=== PATIENT | female | born 1990 | race African-American/Black ===

== ENCOUNTER 2018-02-22 11:35 | Emergency (ER) | payer SELFPAY, OTHER ==
[2018-02-22 12:33] LABS: URINE HCG POC HCG NEGATIVE (Negative)
== END 2018-02-22 14:11 | disposition home or self-care (01) ==
LOC: ER 11:35
DX: S16.1XXA Strain of muscle, fascia and tendon at neck level, initial encounter (principal); S09.90XA Unspecified injury of head, initial encounter; W22.8XXA Striking against or struck by other objects, initial encounter; Y93.89 Activity, other specified; Y92.89 Other specified places as the place of occurrence of the external cause; Y99.8 Other external cause status
CPT/HCPCS: 70450; 70486; 72125; 81025; 99284-25

== ENCOUNTER 2018-10-19 14:20 | Emergency (ER) | payer SELFPAY ==
[~2018-10-19] VITALS: Ht 160 cm; Wt 62.6 kg
[~2018-10-19 14:20] MED LIST: ACET-704 PO; CYCL5TAB PO; IBUP-1060 PO; PREN1TAB58 PO
[2018-10-19 14:32] VITALS: BP 136/69
[2018-10-19] MEDS ORDERED: IBUP-1007 PO (14:35)
[2018-10-19] MEDS ORDERED: HYDR-3164 PO (14:35)
--- NOTE | 2018-10-19 14:36 | PHYS DOC ---
Past Medical History Past Medical History: No Pertinent History Past Surgical History: No Surgical History Alcohol Use: None Drug Use: None Adult General Chief Complaint Chief Complaint: DENTAL PROBLEM [facility] Patient is a 27 year old female who presents with dental pain that started this morning on the left lower side and states it hurts all along the gumline. Review of Systems Review of Systems Constitutional: Denies fever or chills [] Eyes: Denies change in visual acuity, redness, or eye pain [] HENT: Left lower dental pain and gum line pain. Denies nasal congestion or sore throat [] Respiratory: Denies cough or shortness of breath [] Cardiovascular: No additional information not addressed in HPI [] GI: Denies abdominal pain, nausea, vomiting, bloody stools or diarrhea [] : Denies dysuria or hematuria [] Musculoskeletal: Denies back pain or joint pain [] Integument: Denies rash or skin lesions [] Neurologic: Denies headache, focal weakness or sensory changes [] Endocrine: Denies polyuria or polydipsia [] All other systems were reviewed and found to be within normal limits, except as documented in this note. Allergies Allergies Allergies Coded Allergies Type Severity Reaction Last Updated Verified No Known Drug Allergies 12/26/13 No Physical Exam Physical Exam Constitutional: Well developed, well nourished, no acute distress, non-toxic appearance. [] HENT: Normocephalic, atraumatic, bilateral external ears normal, oropharynx moist, no oral exudates, nose normal. Left lower gum line and dental pain. No dental cavities seen, gum line redness, swelling, or facial swelling. [] Eyes: PERRLA, EOMI, conjunctiva normal, no discharge. [] Neck: Normal range of motion, no tenderness, supple, no stridor. [] Cardiovascular:Heart rate regular rhythm, no murmur [] Lungs & Thorax: Bilateral breath sounds clear to auscultation [] Abdomen: Bowel sounds normal, soft, no tenderness, no masses, no pulsatile masses. [] Skin: Warm, dry, no erythema, no rash. [] Back: No tenderness, no CVA tenderness. [] Extremities: No tenderness, no cyanosis, no clubbing, ROM intact, no edema. [] Neurologic: Alert and oriented X 3, normal motor function, normal sensory function, no focal deficits noted. [] Psychologic: Affect normal, judgement normal, mood normal. [] EKG EKG [] Radiology/Procedures Radiology/Procedures [] Course & Med Decision Making Course & Med Decision Making Patient is a 27 year old female who presents with dental pain that started this morning on the left lower side and states it hurts all along the gumline. Rates her pain a 9/10. There is no redness to the gumline, bleeding, no cavities to her teeth. Her face is not swollen. However she complains of the wisdom tooth area of pain. Denies fevers that she is afebrile. Alert and oriented. Skin pink warm and dry. Denies any fevers, nausea, vomiting. Patient states this is morning. States she took Tylenol about 9:00 this morning. She will be given [facility] [place] and dental service resources. Patient is to also take ibuprofen with [place] and to follow up with a dentist as soon as possible. [] Dragon Disclaimer Dragon Disclaimer This electronic medical record was generated, in whole or in part, using a voice recognition dictation system. Departure Departure Impression: Primary Impression: Pain, dental Disposition: 01 HOME, SELF-CARE Condition: STABLE Referrals: NO PCP (PCP) Patient Instructions: Dental Pain Additional Instructions: Follow-up with her dentist as soon as possible. Take medications as prescribed and use ibuprofen. Scripts Ibuprofen (IBUPROFEN) 600 Mg Tablet 600 MG PO PRN Q6HRS PRN for INFLAMMATION, #20 TAB Prov: MARLEN MAXWELL [employer]CH[employer]IC 10/19/18 Hydrocodone/Apap 5-325 (NORCO 5-325 TABLET) 1 Each Tablet 1 TAB PO PRN Q6HRS PRN for PAIN, #10 TAB 0 Refills Prov: MARLEN MAXWELL [employer] MECH[employer]IC 10/19/18 MARLEN MAXWELL [employer] MECH[employer]IC Oct 19, 2018 14:36
[2018-10-19] MEDS ORDERED: IBUPROFEN 600 MG TABLET. PO ONE (14:45)
[2018-10-19] MEDS ORDERED: HYDROcodone/APAP 5/325MG 1 TAB TABLET PO ONE (14:45)
== END 2018-10-19 14:58 | disposition home or self-care (01) ==
LOC: ER 14:20
DX: K08.89 Other specified disorders of teeth and supporting structures (principal)
CPT/HCPCS: 99283

== ENCOUNTER 2019-01-15 10:52 | Emergency (ER) | payer SELFPAY ==
[~2019-01-15] VITALS: Ht 160 cm; Wt 59.9 kg
[~2019-01-15 10:52] MED LIST changes: +HYDR-3164 PO; +IBUP-1007 PO
[2019-01-15 11:01] VITALS: BP 116/69
--- NOTE | 2019-01-15 11:05 | PHYS DOC ---
Past Medical History Past Medical History: No Pertinent History Past Surgical History: No Surgical History Alcohol Use: None Drug Use: None Adult General HPI HPI Patient is a otherwise healthy 28 year old female who presents with nausea and vomiting that started last night after she took a prescribed hydrocodone. She is currently taking antibiotics and was prescribed the narcotic for dental infection. She has follow up appointment later this week for extraction of the tooth. She denies abdominal pain, diarrhea, headache, chest pain, shortness of breath. Review of Systems Review of Systems Constitutional: Denies fever or chills Eyes: Denies change in visual acuity, redness, or eye pain HENT: Denies nasal congestion or sore throat, Reports tooth pain Respiratory: Denies cough or shortness of breath GI: Denies abdominal pain, Reports nausea and vomiting : Denies dysuria or hematuria Integument: Denies rash or skin lesions Neurologic: Denies headache, focal weakness or sensory changes Complete systems were reviewed and found to be within normal limits, except as documented in this note. Current Medications Current Medications Current Medications Medications (Trade) Dose Ordered Sig/Doc Start Time Stop Time Status Last Admin Dose Admin Bupivacaine HCl/ Epinephrine Bitart (Sensorcain-Mpf Epi 0.5%-1:[id number]) 30 ml 1X ONCE 01/15/19 11:15 01/15/19 11:16 DC 01/15/19 11:20 30 ML Dexamethasone (Decadron) 10 mg 1X ONCE 01/15/19 11:15 01/15/19 11:16 DC 01/15/19 11:20 10 MG Ondansetron HCl (Zofran Odt) 4 mg 1X ONCE 01/15/19 11:15 01/15/19 11:16 DC 01/15/19 11:20 4 MG Allergies Allergies Allergies Coded Allergies Type Severity Reaction Last Updated Verified No Known Drug Allergies 12/26/13 No Physical Exam Physical Exam Constitutional: Well developed, well nourished, appears uncomfortable HENT: Normocephalic, atraumatic, left lower third molar with dental amparo Neck: Normal range of motion, no tenderness, supple, no LAD Cardiovascular:Heart rate regular rhythm, no murmur Lungs & Thorax: Bilateral breath sounds clear to auscultation Skin: Warm, dry, no erythema, no rash. Extremities: No tenderness, moves all, no edema Neurologic: Alert and oriented X 3, normal motor function, normal sensory function, no focal deficits noted. Current Patient Data Vital Signs Vital Signs Date Time Temp Pulse Resp B/P (MAP) Pulse Ox O2 Delivery O2 Flow Rate FiO2 01/15/19 11:01 99.1 105 16 116/69 (85) 100 Room Air 99.1 EKG EKG [] Radiology/Procedures Radiology/Procedures [] Course & Med Decision Making Course & Med Decision Making Pertinent Labs and Imaging studies reviewed. (See chart for details) Patient is a 28 year old AA female who presented with nausea and vomiting since yesterday evening after taking a prescribed hydrocodone. She is currently on antibiotics for a scheduled tooth extraction later this week. On exam there is a dental amparo of the left lower third molar. Symptomatic treatment provided including dental block. She was instructed to continue antibiotic as written. She can take ibuprofen as needed for pain control. Dragon Disclaimer Dragon Disclaimer This electronic medical record was generated, in whole or in part, using a voice recognition dictation system. Additional Procedures Progress Dental Block Verbal consent obtained from patient. Time out performed. Left inferior alveolar block performed with infiltration of 0.5% Bupivacaine with Epinephrine x 3ml via 25 gauge hypodermic needle. Successful anesthesia obtained. Patient tolerated procedure well and without difficulty. Departure Departure Impression: Primary Impression: Dentalgia Additional Impressions: Dental caries Nausea & vomiting Disposition: 01 HOME, SELF-CARE Condition: STABLE Referrals: NO PCP (PCP) Patient Instructions: Dental Caries-Brief, Nausea, Adult, [id number], Toothache-Brief Scripts Chlorhexidine Gluconate (PERIDEX) 15 Ml Mouthwash 15 ML PO BID for 7 Days, #946 ML Prov: MARYBEL PEPPER DO 01/15/19 Ondansetron (ONDANSETRON ODT) 4 Mg Tab.rapdis 1 TAB PO PRN Q6-8HRS for VOMITING, #16 TAB Prov: MARYBEL PEPPER DO 01/15/19 Problem Qualifiers Additional Impressions: Nausea & vomiting Vomiting type: unspecified Vomiting Intractability: non-intractable Qualified Codes: R11.2 - Nausea with vomiting, unspecified MARYBEL PEPPRE DO Jan 15, 2019 11:05
[2019-01-15] MEDS ORDERED: ONDANSETRON ODT 4 MG TAB.RAPDIS. PO ONE (11:15)
[2019-01-15] MEDS ORDERED: BUPIVAC MPF-EPI 0.5%-1:200000 30 ML VIAL. INJ ONE (11:15)
[2019-01-15] MEDS ORDERED: DEXAMETHASONE 4 MG TABLET PO ONE (11:15)
[2019-01-15] MEDS ORDERED: ONDA4TAB12 PO (12:07)
[2019-01-15] MEDS ORDERED: CHLO15MO2 PO (12:07)
== END 2019-01-15 12:34 | disposition home or self-care (01) ==
LOC: ER 10:52
DX: K02.9 Dental caries, unspecified (principal); R11.2 Nausea with vomiting, unspecified
CPT/HCPCS: 64400; 99284; J3490; J8540; Q0162; 99283

== ENCOUNTER 2019-02-10 13:31 | Emergency (ER) | payer SELFPAY ==
[~2019-02-10] VITALS: Ht 160 cm; Wt 51.7 kg
[~2019-02-10 13:31] MED LIST changes: +CHLO15MO2 PO; +ONDA4TAB12 PO
[2019-02-10 13:45] VITALS: BP 118/56
[2019-02-10 13:59] LABS: BILIRUBIN,URINE NEGATIVE (NEG); CLARITY,URINE CLEAR; COLOR,URINE YELLOW; NITRITE,URINE NEGATIVE (NEG); PROTEIN,URINE 30 mg/dL (NEG-TRACE); UROBILINOGEN,URINE 0.2 mg/dL (0.2 mg/dL)
--- NOTE | 2019-02-10 14:08 | PHYS DOC ---
Past Medical History Past Medical History: No Pertinent History (MARLEN MAXWELL APRN) Past Surgical History: No Surgical History (MARLEN MAXWELL APRN) Alcohol Use: None Drug Use: None (MARLEN MAXWELL APRN) Adult General Chief Complaint Chief Complaint: ABDOMINAL PAIN HPI HPI Patient is a 28 year old female who presents with white and brown colored vaginal discharge for 2 days with lower abdominal cramping that is used with a heating pad. Patient states last night in the shower she also found a rash-type area outside of her vagina that is nonpainful, nondraining or itchy. (MARLEN MAXWELL APRN) Review of Systems Review of Systems Constitutional: Denies fever or chills [] Eyes: Denies change in visual acuity, redness, or eye pain [] HENT: Denies nasal congestion or sore throat [] Respiratory: Denies cough or shortness of breath [] Cardiovascular: No additional information not addressed in HPI [] GI: Denies abdominal pain, nausea, vomiting, bloody stools or diarrhea [] : vaginal discharge, vaginal rash. Denies dysuria or hematuria [] Musculoskeletal: Denies back pain or joint pain [] Integument: Denies rash or skin lesions [] Neurologic: Denies headache, focal weakness or sensory changes [] All other systems were reviewed and found to be within normal limits, except as documented in this note. (MARLEN MAXWELL APRN) Current Medications Current Medications Current Medications Medications (Trade) Dose Ordered Sig/Doc Start Time Stop Time Status Last Admin Dose Admin Azithromycin (Zithromax) 1,000 mg 1X ONCE 02/10/19 14:15 02/10/19 14:16 DC 02/10/19 14:23 1,000 MG Ceftriaxone Sodium (Rocephin Im) 250 mg 1X ONCE 02/10/19 14:15 02/10/19 14:16 DC 02/10/19 14:23 250 MG Ondansetron HCl (Zofran Odt) 4 mg 1X ONCE 02/10/19 14:15 02/10/19 14:16 DC 02/10/19 14:23 4 MG (NOÉ MOORE MD) Allergies Allergies Allergies Coded Allergies Type Severity Reaction Last Updated Verified No Known Drug Allergies 12/26/13 No (NOÉ MOORE MD) Physical Exam Physical Exam Constitutional: Well developed, well nourished, no acute distress, non-toxic appearance. [] HENT: Normocephalic, atraumatic, bilateral external ears normal, oropharynx moist, no oral exudates, nose normal. [] Eyes: PERRLA, EOMI, conjunctiva normal, no discharge. [] Neck: Normal range of motion, no tenderness, supple, no stridor. [] Cardiovascular:Heart rate regular rhythm, no murmur [] Lungs & Thorax: Bilateral breath sounds clear to auscultation [] Abdomen: Bowel sounds normal, soft, no tenderness, no masses, no pulsatile masses. [] Skin: Vaginal lesions. Warm, dry, no erythema, no rash. [] Back: No tenderness, no CVA tenderness. [] Extremities: No tenderness, no cyanosis, no clubbing, ROM intact, no edema. [] Neurologic: Alert and oriented X 3, normal motor function, normal sensory function, no focal deficits noted. [] Psychologic: Affect normal, judgement normal, mood normal. [] (MARLEN MAXWELL APRN) Current Patient Data Vital Signs Vital Signs Date Time Temp Pulse Resp B/P (MAP) Pulse Ox O2 Delivery O2 Flow Rate FiO2 02/10/19 13:45 98.0 96 16 118/56 (76) 100 Room Air 98.0 (NOÉ MOORE MD) Lab Values Laboratory Tests Test 02/10/19 13:45 02/10/19 13:50 Urine Color Yellow Urine Clarity Clear Urine pH 6.0 Urine Specific [place] 1.010 Urine Protein 30 mg/dL (NEG-TRACE) Urine Glucose (UA) Negative mg/dL (NEG) Urine Ketones (Stick) Trace mg/dL (NEG) Urine Blood Small (NEG) Urine Nitrite Negative (NEG) Urine Bilirubin Negative (NEG) Urine Urobilinogen Dipstick 0.2 mg/dL (0.2 mg/dL) Urine Leukocyte Esterase Small (NEG) Urine RBC Occ /HPF (0-2) Urine WBC 5-10 /HPF (0-4) Urine Squamous Epithelial Cells Occ /LPF Urine Bacteria 0 /HPF (0-FEW) Urine Mucus Slight /LPF POC Urine HCG, Qualitative Hcg negative (Negative) Microbiology 02/10/19 Wet Prep - Final, Complete (NOÉ MOORE MD) EKG EKG [] (MARLEN MAXWELL APRN) Radiology/Procedures Radiology/Procedures [] (MARLEN MAXWELL APRN) Course & Med Decision Making Course & Med Decision Making Patient is a 28 year old female who presents with white and brown colored vaginal discharge for 2 days with lower abdominal cramping that is used with a heating pad. Patient states last night in the shower she also found a rash-type area outside of her vagina that is nonpainful, nondraining or itchy. Patient denies dysuria, fevers, nausea or vomiting or diarrhea. See vaginal exam below. Abdomen soft and nontender. Lungs are clear to auscultation all lobes. Heart rate regular without murmur. Vital signs within normal limits. Afebrile. Alert and oriented. Skin pink warm and dry. Mucous membranes moist. Patient states she does have STD concerns. Patient is treated for Chlamydia and gonorrhea in the ED today. Patient will be given resources for a transportation lead for follow-up of the vaginal lesions. Negative wet prep. Urine shows no infection. Pelvic Exam: Cytology Teacher present Abdomen: Nontender External Genitalia: External vaginal circular and slightly raised lesions that are nondraining, non bleeding, non painful. Normal Skin Speculum: Normal vaginal mucosa, White/brown cervical discharge, cervical os reddened Bimanual: No adnexal masses or tenderness, No CMT (MARLEN MAXWELL APRN) Course & Med Decision Making Staff Physician Addendum: I was working in the ER during the course of this patient's visit. I was available for consultation as needed, but I was not directly involved in the care of this patient. (NOÉ MOORE MD) Dragon Disclaimer Dragon Disclaimer This electronic medical record was generated, in whole or in part, using a voice recognition dictation system. (MARLEN MAXWELL APRN) Departure Departure Impression: Primary Impression: Concern about sexually transmitted disease in female without diagnosis Disposition: 01 HOME, SELF-CARE Condition: STABLE Referrals: NO PCP (PCP) LAURA WALLACE Jr, MD Patient Instructions: Sexually Transmitted Disease Additional Instructions: Follow-up with transportation lead for vaginal lesions. MARLEN MAXWELL APRN Feb 10, 2019 14:08 NOÉ MOORE MD Feb 11, 2019 07:11
[2019-02-10 14:12] LABS: BACTERIA,URINE 0 /HPF (0-FEW); RBC,URINE OCC /HPF (0-2); SQUAMOUS EPITHELIAL CELL,UR OCC /LPF
[2019-02-10] MEDS: AZITHROMYCIN 250 MG TABLET. PO ONE (14:23)
[2019-02-10] MEDS: cefTRIAXone IM 250 MG VIAL IM ONE (14:23)
[2019-02-10] MEDS: ONDANSETRON ODT 4 MG TAB.RAPDIS. PO ONE (14:23)
[2019-02-13 14:18] LABS: GC PROBE Negative (Negative)
== END 2019-02-10 16:06 | disposition home or self-care (01) ==
LOC: ER 13:31
DX: N89.8 Other specified noninflammatory disorders of vagina (principal); R10.30 Lower abdominal pain, unspecified; Z20.2 Contact with and (suspected) exposure to infections with a predominantly sexual mode of transmission
CPT/HCPCS: 81001; 81025; 96372; 99283; J0696; Q0111; Q0144; Q0162; 87086; 87491; 87591

== ENCOUNTER 2019-09-05 11:23 | Emergency (ER) | payer SELFPAY ==
[~2019-09-05] VITALS: Ht 160 cm; Wt 59.1 kg
--- NOTE | 2019-09-05 11:56 | PHYS DOC ---
Past Medical History Past Medical History: No Pertinent History Past Surgical History: No Surgical History Alcohol Use: None Drug Use: None Adult General Chief Complaint Chief Complaint: VAGINAL BLEEDING HPI HPI Patient is a 28 year old female who presents with complaining of vaginal bleeding. Patient is with LMP of early June with complaining of constant vaginal bleeding for the last 3 weeks that gradually getting heavier. Patient denies passing tissue or blood clots and states her bleeding is more than her usual menstruation. Patient complaining of mild low back pain and rated his pain for without abdominal cramping, dizziness, chest pain, shortness of breath, fever and chills. Review of Systems Review of Systems Constitutional: Denies fever or chills [] Eyes: Denies change in visual acuity, redness, or eye pain [] HENT: Denies nasal congestion or sore throat [] Respiratory: Denies cough or shortness of breath [] Cardiovascular: No additional information not addressed in HPI [] GI: Denies abdominal pain, nausea, vomiting, bloody stools or diarrhea [] : Denies dysuria or hematuria, reports vaginal bleeding [] Musculoskeletal: Denies joint pain , reports back pain[] Integument: Denies rash or skin lesions [] Neurologic: Denies headache, focal weakness or sensory changes [] Endocrine: Denies polyuria or polydipsia [] All other systems were reviewed and found to be within normal limits, except as documented in this note. Current Medications Current Medications Current Medications Medications (Trade) Dose Ordered Sig/Doc Start Time Stop Time Status Last Admin Dose Admin Sodium Chloride 1,000 ml @ 1,000 mls/hr 1X ONCE 09/05/19 12:00 09/05/19 12:59 DC 09/05/19 12:09 1,000 MLS/HR Allergies Allergies Allergies Coded Allergies Type Severity Reaction Last Updated Verified No Known Drug Allergies 12/26/13 No Physical Exam Physical Exam Constitutional: Well developed, well nourished, no distress, non-toxic appearance. [] HENT: Normocephalic, atraumatic. Eyes: PERRLA, EOMI, conjunctiva normal, no discharge. [] Neck: Normal range of motion, no tenderness, supple, no stridor. [] Cardiovascular:Heart rate regular rhythm, no murmur [] Lungs & Thorax: Bilateral breath sounds clear to auscultation [] Abdomen: Bowel sounds normal, soft, no tenderness, no masses, no pulsatile masses. [] Skin: Warm, dry, no erythema, no rash. [] Back: No tenderness, no CVA tenderness. [] Extremities: No tenderness, no cyanosis, no clubbing, ROM intact, no edema. [] Neurologic: Alert and oriented X 3, no focal deficits noted. [] Psychologic: Affect normal, judgement normal, mood normal. [] Current Patient Data Vital Signs Vital Signs Date Time Temp Pulse Resp B/P (MAP) Pulse Ox O2 Delivery O2 Flow Rate FiO2 09/05/19 13:06 84 16 102/62 (75) 99 Room Air 09/05/19 11:37 98.8 98.8 Lab Values Laboratory Tests Test 09/05/19 11:49 09/05/19 12:05 POC Urine HCG, Qualitative Hcg negative (Negative) White Blood Count 3.9 x10^3/uL (4.0-11.0) L Red Blood Count 3.83 x10^6/uL (3.50-5.40) Hemoglobin 10.9 g/dL (12.0-15.5) L Hematocrit 33.0 % (36.0-47.0) L Mean Corpuscular Volume 86 fL (79-100) Mean Corpuscular Hemoglobin 29 pg (25-35) Mean Corpuscular Hemoglobin Concent 33 g/dL (31-37) Red Cell Distribution Width 14.2 % (11.5-14.5) Platelet Count 223 x10^3/uL (140-400) Neutrophils (%) (Auto) 41 % (31-73) Lymphocytes (%) (Auto) 50 % (24-48) H Monocytes (%) (Auto) 8 % (0-9) Eosinophils (%) (Auto) 1 % (0-3) Basophils (%) (Auto) 1 % (0-3) Neutrophils # (Auto) 1.6 x10^3/uL (1.8-7.7) L Lymphocytes # (Auto) 2.0 x10^3/uL (1.0-4.8) Monocytes # (Auto) 0.3 x10^3/uL (0.0-1.1) Eosinophils # (Auto) 0.0 x10^3/uL (0.0-0.7) Basophils # (Auto) 0.0 x10^3/uL (0.0-0.2) Sodium Level 142 mmol/L (136-145) Potassium Level 4.5 mmol/L (3.5-5.1) Chloride Level 107 mmol/L (98-107) Carbon Dioxide Level 27 mmol/L (21-32) Anion Gap 8 (6-14) Blood Urea Nitrogen 10 mg/dL (7-20) Creatinine 0.9 mg/dL (0.6-1.0) Estimated GFR (Cockcroft-Gault) 90.9 BUN/Creatinine Ratio 11 (6-20) Glucose Level 83 mg/dL (70-99) Calcium Level 9.1 mg/dL (8.5-10.1) Total Bilirubin 0.7 mg/dL (0.2-1.0) Aspartate Amino Transferase (AST) 15 U/L (15-37) Alanine Aminotransferase (ALT) 12 U/L (14-59) L Alkaline Phosphatase 54 U/L (46-116) Total Protein 7.5 g/dL (6.4-8.2) Albumin 3.5 g/dL (3.4-5.0) Albumin/Globulin Ratio 0.9 (1.0-1.7) L Laboratory Tests 09/05/19 12:05 Laboratory Tests 09/05/19 12:05 EKG EKG [] Radiology/Procedures Radiology/Procedures [] [address] [place] [address] IMAGING REPORT Signed PATIENT: FATOUMATA JAIMES ACCOUNT: [id number] : 1990 LOCATION: ER AGE: 28 SEX: F EXAM STATUS: REG ER ORD. PHYSICIAN: ESTEFANIA EUGENE MD REASON: abnormal vaginal bleeding PROCEDURE: PELVIS COMPLETE EXAM: Pelvic sonogram. HISTORY: Vaginal bleeding. TECHNIQUE: Transabdominal sonographic imaging of the pelvis was performed. COMPARISON: None. FINDINGS: The uterus measures 6.1 x 4.4 x 3.9 cm. The endometrial stripe measures 6 mm in thickness. The ovaries are normal in size and demonstrate normal blood flow. There are multiple ovarian follicles. There is a dominant right ovarian follicle/follicular cyst measuring 2.1 cm. There is no pelvic free fluid. IMPRESSION: 1. 2.1 cm dominant right ovarian follicle/follicular cyst. 2. Otherwise, unremarkable pelvic sonogram. Electronically signed by: Aline York MD (09/05/2019 12:38 PM) [facility] DICTATED and SIGNED BY: ALINE YORK MD DATE: 09/05/19 1238 Course & Med Decision Making Course & Med Decision Making Pertinent Labs and Imaging studies reviewed. (See chart for details) Evaluation of patient in ER showed 28-year-old female patient with complaining of vaginal bleeding for 3 weeks. Patient had unremarkable physical exam. Labs showed hemoglobin of 10.6 with history of chronic anemia. White count was 2.4 with history of leukopenia. Ultrasound of pelvic showed normal size of uterus with small ovarian cyst. Plan discharge patient home with diagnose of abnormal vaginal bleeding and instruction to follow up with her [employer]. I've spoken with the patient and/or caregivers. I've explained the patient's condition, diagnosis and treatment plan based on information available to me at this time. I've answered the patient's and/or caregivers questions and addressed any concerns. The patient and/or caregivers have a good understanding the patient's diagnosis, condition and treatment plan as can be expected at this point. Vital signs have been stabilized. The patient's condition is stable for discharge from the emergency department. The patient will pursue further outpatient evaluation with her primary care provider or other designated consulting physician as outlined in the discharge instructions. Patient and/or caregivers are agreeable to this plan of care and follow-up instructions have been explained in detail. The patient and/or caregivers have received these instructions in written format and expressed understanding of these discharge instructions. The patient and her caregivers are aware that if any significant change in condition or worsening of symptoms should prompt him to immediately return to this of the closest emergency department. If an emergent department is not readily available I would encourage him to call 911. Cordelia Disclaimer Cordelia Disclaimer This electronic medical record was generated, in whole or in part, using a voice recognition dictation system. Departure Departure Impression: Primary Impression: Abnormal vaginal bleeding Additional Impression: Chronic anemia Disposition: HOME, SELF-CARE (at 1254) Condition: IMPROVED Referrals: NO PCP (PCP) Patient Instructions: Abnormal Uterine Bleeding, Anemia, FAQs Additional Instructions: Drink plenty of liquids Follow-up with your [employer] [employer] physician in 2-3 days Return to ER if not getting better Take [id number] iron. Scripts Ibuprofen (IBUPROFEN) 600 Mg Tablet 600 MG PO PRN Q6HRS PRN for PAIN, #20 TAB take with food or milk Prov: ESTEFANIA EUGENE MD 09/05/19 Problem Qualifiers ESTEFANIA EUGENE MD Sep 05, 2019 11:56
[2019-09-05] MEDS ORDERED: IV NORMAL SALINE 1000ML BAG 1,000 ML IV ONE (12:00)
[2019-09-05 12:20] LABS: BASO % 1 % (0-3); EOS % 1 % (0-3); HEMOGLOBIN 10.9 g/dL (12.0-15.5); LYMPH % 50 % (24-48); MEAN CORPUSCULAR HEMOGLOBIN 29 pg (25-35); MEAN CORPUSCULAR HGB CONC 33 g/dL (31-37); MEAN CORPUSCULAR VOLUME 86 fL (79-100); MONO # 0.3 x10^3/uL (0.0-1.1); MONO % 8 % (0-9); NEUT # 1.6 x10^3/uL (1.8-7.7); NEUT % 41 % (31-73); PLATELET COUNT 223 x10^3/uL (140-400); RED BLOOD COUNT 3.83 x10^6/uL (3.50-5.40); RED CELL DISTRIBUTION WIDTH 14.2 % (11.5-14.5); WHITE BLOOD COUNT 3.9 x10^3/uL (4.0-11.0)
[2019-09-05 12:26] LABS: CALCIUM 9.1 mg/dL (8.5-10.1); CREATININE 0.9 mg/dL (0.6-1.0); GFR 90.9; POTASSIUM 4.5 mmol/L (3.5-5.1)
[2019-09-05 12:36] LABS: ALBUMIN 3.5 g/dL (3.4-5.0); ALBUMIN/GLOBULIN RATIO 0.9 (1.0-1.7); TOTAL BILIRUBIN 0.7 mg/dL (0.2-1.0); TOTAL PROTEIN 7.5 g/dL (6.4-8.2)
--- NOTE | 2019-09-05 12:41 | RAD ---
EXAM: Pelvic sonogram. HISTORY: Vaginal bleeding. TECHNIQUE: Transabdominal sonographic imaging of the pelvis was performed. COMPARISON: None. FINDINGS: The uterus measures 6.1 x 4.4 x 3.9 cm. The endometrial stripe measures 6 mm in thickness. The ovaries are normal in size and demonstrate normal blood flow. There are multiple ovarian follicles. There is a dominant right ovarian follicle/follicular cyst measuring 2.1 cm. There is no pelvic free fluid. IMPRESSION: 1. 2.1 cm dominant right ovarian follicle/follicular cyst. 2. Otherwise, unremarkable pelvic sonogram. Electronically signed by: Aline York MD (09/05/2019 12:38 PM) [place] [id number]
[2019-09-05] MEDS ORDERED: IBUP-1007 PO (12:56)
[2019-09-05 13:06] VITALS: BP 102/62
== END 2019-09-05 13:21 | disposition home or self-care (01) ==
LOC: ER 11:23
DX: N93.8 Other specified abnormal uterine and vaginal bleeding (principal); D64.9 Anemia, unspecified
CPT/HCPCS: 36415; 76856; 80053; 81025; 85025; 99285; J7030

== ENCOUNTER 2019-12-08 12:37 | Emergency (ER) | payer OTHER ==
[2019-12-08] MEDS ORDERED: IV NORMAL SALINE 1000ML BAG 1,000 ML IV ONE (13:30)
[2019-12-08 13:37] LABS: CALCIUM 8.6 mg/dL (8.5-10.1); CREATININE 0.8 mg/dL (0.6-1.0); GFR 104.1; POTASSIUM 3.6 mmol/L (3.5-5.1)
[2019-12-08 13:50] LABS: ALBUMIN 3.3 g/dL (3.4-5.0); ALBUMIN/GLOBULIN RATIO 0.9 (1.0-1.7); TOTAL BILIRUBIN 0.4 mg/dL (0.2-1.0); TOTAL PROTEIN 6.9 g/dL (6.4-8.2)
[2019-12-08 13:52] LABS: BILIRUBIN,URINE NEGATIVE (NEG); CLARITY,URINE CLEAR; COLOR,URINE YELLOW; NITRITE,URINE NEGATIVE (NEG); PH,URINE 6.5; PROTEIN,URINE NEGATIVE (NEG-TRACE)
[2019-12-08 14:00] VITALS: BP 93/57
[2019-12-08 14:01] LABS: BASO % 0 % (0-3); EOS % 0 % (0-3); HEMATOCRIT 30.3 % (36.0-47.0); LYMPH # 1.6 x10^3/uL (1.0-4.8); LYMPH % 38 % (24-48); MEAN CORPUSCULAR HEMOGLOBIN 28 pg (25-35); MEAN CORPUSCULAR HGB CONC 33 g/dL (31-37); MEAN CORPUSCULAR VOLUME 86 fL (79-100); MONO # 0.4 x10^3/uL (0.0-1.1); MONO % 10 % (0-9); NEUT # 2.1 x10^3/uL (1.8-7.7); NEUT % 52 % (31-73); PLATELET COUNT 189 x10^3/uL (140-400); RED BLOOD COUNT 3.54 x10^6/uL (3.50-5.40); WHITE BLOOD COUNT 4.1 x10^3/uL (4.0-11.0)
[2019-12-08 14:05] LABS: BACTERIA,URINE FEW /HPF (0-FEW); RBC,URINE 0 /HPF (0-2); SQUAMOUS EPITHELIAL CELL,UR MANY /LPF
--- NOTE | 2019-12-08 14:27 | PHYS DOC ---
Past Medical History Past Medical History: No Pertinent History Past Surgical History: No Surgical History Alcohol Use: None Drug Use: None Adult General Chief Complaint Chief Complaint: DIZZY/LIGHT HEADED [facility] HPI Patient is a 28 year old AA female who presents to the emergency department with complaints of dizziness while standing today at work, the dizziness increased with position changes. She denies any sensation of the room spinning. Patient states that 2 days ago she did have 6 episodes of vomiting and 2 epi sodes of diarrhea. She denies any abdominal pain, nausea, vomiting, diarrhea since then. Patient also denies fever, ringing in her ears, cough, shortness of breath, sore throat, or ear pain. She denies having any nausea, vomiting, diarrhea, or abdominal pain in the last 48 hours. Patient states she is currently , 5, para 4. Her last menstrual cycle was on August 19, 2019, she does not know what her due date is. Patient states her OB is Dr. Clark, who she saw in the office last week. She denies any dysuria, hematuria, foul-smelling urine, irregular vaginal discharge, vaginal bleeding, or pelvic pain at this time. Patient denies any headache, vision changes, numbness, tingl ing, weakness, slurred speech, difficulty speaking, or incoordination. Currently, she denies any complaints. All other ROS is neg unless otherwise noted in HPI. Review of Systems Review of Systems See Above Current Medications Current Medications Current Medications Medications (Trade) Dose Ordered Sig/Doc Start Time Stop Time Status Last Admin Dose Admin Sodium Chloride 1,000 ml @ 1,000 mls/hr 1X ONCE 12/08/19 13:30 12/08/19 14:29 DC 12/08/19 13:23 1,000 MLS/HR Allergies Allergies Allergies Coded Allergies Type Severity Reaction Last Updated Verified No Known Drug Allergies 12/26/13 No Physical Exam Physical Exam See Above Constitutional: Well developed, well nourished, no acute distress, non-toxic appearance. [] HENT: Normocephalic, atraumatic, bilateral external ears normal, oropharynx moist, no oral exudates, nose normal. [] Eyes: PERRLA, EOMI, conjunctiva normal, no discharge. [] Neck: Normal range of motion, no tenderness, supple, no stridor. [] Cardiovascular:Heart rate regular rhythm, no murmur [] Lungs & Thorax: Bilateral breath sounds clear to auscultation , Respirations even and unlabored, no retractions, no respiratory distress[] Abdomen: Bowel sounds normal, soft, no tenderness, no masses, no pulsatile masses; palpable fundus 2 cm below umbilicus. [] Skin: Warm, dry, no erythema, no rash. [] Back: No CVA tenderness. [] Extremities: No cyanosis,ROM intact, no edema. [] Neurologic: Alert and oriented X 3, CN II- CN VII intact, normal motor function, normal sensory function, no focal deficits noted. [] Psychologic: Affect normal, judgement normal, mood normal. [] Current Patient Data Vital Signs Vital Signs Date Time Temp Pulse Resp B/P (MAP) Pulse Ox O2 Delivery O2 Flow Rate FiO2 12/08/19 14:00 60 100 12/08/19 13:00 16 12/08/19 12:44 99.1 122/64 (83) Room Air 99.1 Lab Values Laboratory Tests Test 12/08/19 12:45 12/08/19 13:37 12/08/19 13:42 12/08/19 13:53 Sodium Level 136 mmol/L (136-145) Potassium Level 3.6 mmol/L (3.5-5.1) Chloride Level 104 mmol/L (98-107) Carbon Dioxide Level 24 mmol/L (21-32) Anion Gap 8 (6-14) Blood Urea Nitrogen 9 mg/dL (7-20) Creatinine 0.8 mg/dL (0.6-1.0) Estimated GFR (Cockcroft-Gault) 104.1 BUN/Creatinine Ratio 11 (6-20) Glucose Level 140 mg/dL (70-99) H Calcium Level 8.6 mg/dL (8.5-10.1) Total Bilirubin 0.4 mg/dL (0.2-1.0) Aspartate Amino Transferase (AST) 11 U/L (15-37) L Alanine Aminotransferase (ALT) 13 U/L (14-59) L Alkaline Phosphatase 39 U/L (46-116) L Total Protein 6.9 g/dL (6.4-8.2) Albumin 3.3 g/dL (3.4-5.0) L Albumin/Globulin Ratio 0.9 (1.0-1.7) L Urine Collection Type Unknown Urine Color Yellow Urine Clarity Clear Urine pH 6.5 Urine Specific Wilsey >=1.030 Urine Protein Negative mg/dL (NEG-TRACE) Urine Glucose (UA) Negative mg/dL (NEG) Urine Ketones (Stick) Trace mg/dL (NEG) Urine Blood Negative (NEG) Urine Nitrite Negative (NEG) Urine Bilirubin Negative (NEG) Urine Urobilinogen Dipstick 1.0 mg/dL (0.2 mg/dL) Urine Leukocyte Esterase Small (NEG) Urine RBC 0 /HPF (0-2) Urine WBC 1-4 /HPF (0-4) Urine Squamous Epithelial Cells Many /LPF Urine Bacteria Few /HPF (0-FEW) Urine Mucus Mod /LPF POC Urine HCG, Qualitative Hcg positive (Negative) White Blood Count 4.1 x10^3/uL (4.0-11.0) Red Blood Count 3.54 x10^6/uL (3.50-5.40) Hemoglobin 10.0 g/dL (12.0-15.5) L Hematocrit 30.3 % (36.0-47.0) L Mean Corpuscular Volume 86 fL (79-100) Mean Corpuscular Hemoglobin 28 pg (25-35) Mean Corpuscular Hemoglobin Concent 33 g/dL (31-37) Red Cell Distribution Width 13.0 % (11.5-14.5) Platelet Count 189 x10^3/uL (140-400) Neutrophils (%) (Auto) 52 % (31-73) Lymphocytes (%) (Auto) 38 % (24-48) Monocytes (%) (Auto) 10 % (0-9) H Eosinophils (%) (Auto) 0 % (0-3) Basophils (%) (Auto) 0 % (0-3) Neutrophils # (Auto) 2.1 x10^3/uL (1.8-7.7) Lymphocytes # (Auto) 1.6 x10^3/uL (1.0-4.8) Monocytes # (Auto) 0.4 x10^3/uL (0.0-1.1) Eosinophils # (Auto) 0.0 x10^3/uL (0.0-0.7) Basophils # (Auto) 0.0 x10^3/uL (0.0-0.2) Laboratory Tests 12/08/19 13:53 Laboratory Tests 12/08/19 12:45 EKG EKG [] Radiology/Procedures Radiology/Procedures FHTs 144 [] Course & Med Decision Making Course & Med Decision Making Pertinent Labs and Imaging studies reviewed. (See chart for details) 1538- Spoke [facility] Dr. Clark and advised of patient in the ER. Informed Dr. Clark of elevated blood glucose and current Hgb adn Hct. Pt was given 1 L of NS and reported feeling better after medications. FHTs 144 in the ER .UA unremarkable. Will have patient call his office to follow up with him next week. Pt no longer orthostatic after IV fluids. HR was 77 standing after fluids, pt reported feeling better and states she would like to go home Pt verbalized an understanding of home care, medications, follow-up, and return to ED instructions and was in agreement with the plan of care. [] Dragon Disclaimer Dragon Disclaimer This electronic medical record was generated, in whole or in part, using a voice recognition dictation system. Departure Departure Impression: Primary Impression: Orthostatic lightheadedness Additional Impression: Dehydration during Disposition: 01 HOME, SELF-CARE Condition: STABLE Referrals: NO PCP (PCP) Patient Instructions: Dehydration, Adult, [id number], Orthostatic Hypotension Additional Instructions: Increase clear fluids. Activity as tolerated. Follow-up with Dr. Clark next week. Return to the ER if symptoms worsen. Problem Qualifiers MARLENE HARRIS APRN Dec 08, 2019 14:27
== END 2019-12-08 15:38 | disposition home or self-care (01) ==
LOC: ER 12:37
DX: O26.892 Other specified pregnancy related conditions, second trimester (principal); E86.0 Dehydration; R42 Dizziness and giddiness; O21.9 Vomiting of pregnancy, unspecified; Z3A.00 Weeks of gestation of pregnancy not specified
CPT/HCPCS: 36415; 80053; 81001; 81025; 85025; 87086; 96360; 99285; J7030; 99284-25

== ENCOUNTER 2020-05-09 15:04 | Emergency (ER) | payer OTHER ==
[~2020-05-09] VITALS: Ht 157.5 cm; Wt 63.0 kg
[2020-05-09] MEDS ORDERED: IV NORMAL SALINE 1000ML BAG 1,000 ML IV ONE (16:15)
--- NOTE | 2020-05-09 16:30 | PHYS DOC ---
Past Medical History Past Medical History: No Pertinent History (MARLENE HARRIS APRN) Past Surgical History: No Surgical History (MARLENE HARRIS APRN) Smoking Status: Never Smoker Alcohol Use: None Drug Use: None (MARLENE HARRIS APRN) General Adult EDM: Chief Complaint: MULTIPLE COMPLAINTS HPI: HPI: Patient is a 29 year old AA female who presents to the emergency department with complaints of right-sided flank pain and dysuria for the last 3 days. She also complains of vaginal bleeding since 14 April. Patient states she takes her control daily and has not missed any pills. She reports that she has had light vaginal bleeding with occasional large clots every day since onset of her cycle last month. She reports that she called her MANAGER TRADING, Dr. Clark, but he did not have any appointments available until May 18. Patient denies any fever, cough, shortness of breath, nausea, vomiting, diarrhea, or abdominal pain. She reports pain in her right low back that wraps around to her right flank. Currently rates the pain a 10 out of 10 on the pain scale, she denies any alleviating or exacerbating factors. Patient states that the pain does not increase with movement or palpation. (MARLENE HARRIS APRN) Review of Systems: Review of Systems: Constitutional: Denies fever or chills. [] Eyes: Denies change in visual acuity. [] HENT: Denies nasal congestion or sore throat. [] Respiratory: Denies cough or shortness of breath. [] Cardiovascular: Denies chest pain or edema. [] GI: Denies abdominal pain, nausea, vomiting, or diarrhea. [] : See HPI [] Musculoskeletal: Denies joint pain. [] Integument: Denies rash. [] Neurologic: Denies headache, focal weakness or sensory changes. [] Lymphatic: Denies swollen glands. [] Psychiatric: Denies depression or anxiety. [] (MARLENE HARRIS APRN) Heart Score: Risk Factors: Risk Factors: DM, Current or recent (<one month) smoker, HTN, HLP, family history of CAD, obesity. Risk Scores: Score 0 - 3: 2.5% MACE over next 6 weeks - Discharge Home Score 4 - 6: 20.3% MACE over next 6 weeks - Admit for Clinical Observation Score 7 - 10: 72.7% MACE over next 6 weeks - Early Invasive Strategies (MRALENE HARRIS APRN) Current Medications: Current Medications Medications (Trade) Dose Ordered Sig/Doc Start Time Stop Time Status Last Admin Dose Admin Ketorolac Tromethamine (Toradol 30mg Vial) 30 mg 1X ONCE 05/09/20 16:45 05/09/20 16:46 Sodium Chloride 1,000 ml @ 1,000 mls/hr 1X ONCE 05/09/20 16:15 05/09/20 17:14 (MARLENE HARRIS APRN) Allergies: Allergies: Allergies Coded Allergies Type Severity Reaction Last Updated Verified No Known Drug Allergies 12/26/13 No (MRALENE HARRIS APRN) Physical Exam: PE: Constitutional: Well developed, well nourished, no acute distress, non-toxic appearance. HENT: Normocephalic, atraumatic, bilateral external ears normal, nose normal. Eyes: PERRLA, EOMI, conjunctiva normal, no discharge. Neck: Normal range of motion, no stridor. Cardiovascular: Heart rate regular rhythm Lungs & Thorax: Respirations even and unlabored, no retractions, no respiratory distress Pelvic Exam: Signal Tower Operator present Laura RN Abdomen: Nontender, soft External Genitalia: Normal Skin Speculum: Normal vaginal mucosa, bloody cervical discharge Bimanual: No adnexal masses or tenderness, No CMT Skin: Warm, dry, no erythema, no rash. Back: R CVA tenderness Extremities: No cyanosis, ROM intact, no edema. Neurologic: Alert and oriented X 3, no focal deficits noted. Psychologic: Affect normal, judgement normal, mood normal. (MARLENE HARRIS APRN) Current Patient Data: Labs: Laboratory Tests Test 05/09/20 15:28 POC Urine HCG, Qualitative Hcg negative (Negative) Vital Signs: Vital Signs Date Time Temp Pulse Resp B/P (MAP) Pulse Ox O2 Delivery O2 Flow Rate FiO2 05/09/20 15:22 98.8 56 18 139/64 (89) 99 Room Air 98.8 (MARLENE HARRIS APRN) EKG: EKG: [] (MARLENE HARRIS APRN) Radiology/Procedures: Radiology/Procedures: [] (MARLENE HARRIS APRN) Course & Med Decision Making: Course & Med Decision Making Pertinent Labs and Imaging studies reviewed. (See chart for details) [] (MARLENE HARRIS APRN) Marthaon Disclaimer: Cordelia Disclaimer: This electronic medical record was generated, in whole or in part, using a voice recognition dictation system. (MARLENE HARRIS APRN) Departure Departure Impression: Primary Impression: UTI (urinary tract infection) Qualified Codes: N10 - Acute pyelonephritis Additional Impression: Acute renal insufficiency Disposition: HOME, SELF-CARE Condition: STABLE Referrals: NO PCP (PCP) Patient Instructions: Pyelonephritis, Adult, [id number] Additional Instructions: Fill prescription(s) and use as directed. Avoid bladder irritants such as caffeine, carbonation, and spicy foods. Increase clear fluids. Follow up with your primary care doctor about your elevated creatinine which was 1.2 today. Call tomorrow to schedule an appointment return to the ER if symptoms worsen or you develop a fever. Scripts Cephalexin (CEPHALEXIN) 500 Mg Capsule 1 CAP PO QID for 7 Days, #28 CAP 0 Refills Prov: MARLENE HARRIS APRN 05/09/20 Justicifation of Admission Dx: Justifications for Admission: Justification of Admission Dx: No (MARLENE HARRIS APRN) Attending Signature Attending Signature I have reviewed the PA/RESEARCH DIRECTOR's note and plan of care. I was available for consultation as needed during the patient's visit in the emergency department. I agree with the clinical impression, plan, and disposition. (MARYBEL PEPPER DO) MARLENE HARRIS APRN May 09, 2020 16:30 MARYBEL PEPPER DO May 10, 2020 07:15
[2020-05-09 16:34] LABS: BILIRUBIN,URINE NEGATIVE (NEG); CLARITY,URINE CLEAR; COLOR,URINE YELLOW; NITRITE,URINE NEGATIVE (NEG); PH,URINE 6.5 (<5.0-8.0); PROTEIN,URINE 30 mg/dL (NEG-TRACE); UROBILINOGEN,URINE 0.2 mg/dL (0.2 mg/dL)
[2020-05-09] MEDS ORDERED: KETOROLAC 30 MG/ML VIAL. IV ONE (16:45)
[2020-05-09 16:48] LABS: BASO % 0 % (0-3); EOS % 1 % (0-3); HEMATOCRIT 35.6 % (36.0-47.0); HEMOGLOBIN 11.8 g/dL (12.0-15.5); LYMPH % 40 % (24-48); MEAN CORPUSCULAR HEMOGLOBIN 29 pg (25-35); MEAN CORPUSCULAR HGB CONC 33 g/dL (31-37); MEAN CORPUSCULAR VOLUME 87 fL (79-100); MONO # 0.4 x10^3/uL (0.0-1.1); MONO % 8 % (0-9); NEUT # 2.6 x10^3/uL (1.8-7.7); NEUT % 51 % (31-73); PLATELET COUNT 239 x10^3/uL (140-400); RED BLOOD COUNT 4.07 x10^6/uL (3.50-5.40); RED CELL DISTRIBUTION WIDTH 13.5 % (11.5-14.5); WHITE BLOOD COUNT 5.1 x10^3/uL (4.0-11.0)
[2020-05-09 16:56] LABS: SQUAMOUS EPITHELIAL CELL,UR MANY /LPF
[2020-05-09 16:56] LABS: CALCIUM 8.7 mg/dL (8.5-10.1); CREATININE 1.2 mg/dL (0.6-1.0); GFR 64.7
[2020-05-09 16:58] LABS: BACTERIA,URINE FEW /HPF (0-FEW); WBC,URINE TNTC /HPF (0-4)
[2020-05-09 18:00] VITALS: BP 101/55
--- NOTE | 2020-05-09 18:10 | RAD ---
Right upper quadrant abdominal ultrasound History: Reason: R flank pain x3 days Comparison: None. Technique: Transabdominal ultrasound images are obtained. Findings: Visualized pancreas is homogeneous. Liver is normal in echogenicity. Right hepatic lobe measures 13.1 cm. Portal flow is hepatopedal. Gallbladder has an unremarkable appearance. Common bile duct caliber is normal measuring 2 mm in diameter. The right kidney measures 8.6 cm in length. There is no hydronephrosis. IVC is unremarkable. IMPRESSION: Unremarkable right upper quadrant ultrasound. Electronically signed by: Sudeep Fair MD (05/09/2020 6:07 PM) [facility]
[2020-05-09] MEDS ORDERED: CEPH500C PO (18:29)
== END 2020-05-09 18:40 | disposition home or self-care (01) ==
LOC: ER 15:04
DX: N39.0 Urinary tract infection, site not specified (principal); N28.9 Disorder of kidney and ureter, unspecified; N10 Acute pyelonephritis; N93.9 Abnormal uterine and vaginal bleeding, unspecified; B96.89 Other specified bacterial agents as the cause of diseases classified elsewhere; R30.0 Dysuria
CPT/HCPCS: 36415; 76705; 80048; 81001; 81025; 85025; 87086; 96374; 99284; J1885; J7030

== ENCOUNTER 2021-01-30 19:11 | Emergency (ER) | payer OTHER ==
[~2021-01-30] VITALS: Ht 160 cm; Wt 65.5 kg
[~2021-01-30 19:11] MED LIST changes: +CEPH500C PO
[2021-01-30 20:37] VITALS: BP 134/73
[2021-01-30] MEDS ORDERED: VALA10008 PO (20:59)
[2021-01-30] MEDS ORDERED: HYDR-2761 PO (20:59)
--- NOTE | 2021-01-30 21:00 | PHYS DOC ---
Past Medical History Past Medical History: No Pertinent History (MARLEN MAXWELL [employer]PERINTENDENT [employer]SE) Past Surgical History: No Surgical History (MARLEN MAXWELL APRN) Smoking Status: Never Smoker Alcohol Use: None Drug Use: None (MARLEN MAXWELL APRN) General Adult EDM: Chief Complaint: INSECT BITE HPI: HPI: Patient is a 30 year old female who presents with morning awoke she had a small blister to the left lateral hand and as the days progressed it is gotten worse and is moving down the left lateral hand and the pain is throbbing and moving down the lateral forearm. She states it hurts to make a fist. She rates her pain a 10 out of 10. Patient states she does not remember ever having chickenpox before. Patient denies focal weakness, coolness of the extremity, skin color changes. (MARLEN MAXWELL [employer]) Review of Systems: Review of Systems: Constitutional: Denies fever or chills. [] Eyes: Denies change in visual acuity. [] HENT: Denies nasal congestion or sore throat. [] Respiratory: Denies cough or shortness of breath. [] Cardiovascular: Denies chest pain or edema. [] GI: Denies abdominal pain, nausea, vomiting, bloody stools or diarrhea. [] : Denies dysuria. [] Musculoskeletal: Denies back pain or joint pain. + Left hand pain , + left forearm pain [] Integument: Denies rash. + Left lateral blister rash [] Neurologic: Denies headache, focal weakness or sensory changes. [] Endocrine: Denies polyuria or polydipsia. [] Lymphatic: Denies swollen glands. [] Psychiatric: Denies depression or anxiety. [] (MARLEN MAXWELL [employer]INT[employer]) Heart Score: Risk Factors: Risk Factors: DM, Current or recent (<one month) smoker, HTN, HLP, family history of CAD, obesity. Risk Scores: Score 0 - 3: 2.5% MACE over next 6 weeks - Discharge Home Score 4 - 6: 20.3% MACE over next 6 weeks - Admit for Clinical Observation Score 7 - 10: 72.7% MACE over next 6 weeks - Early Invasive Strategies (MARLEN MAXWELL [employer]) Allergies: Allergies: Allergies Coded Allergies Type Severity Reaction Last Updated Verified No Known Drug Allergies 12/26/13 No (MARLEN MAXWELL APRN) Physical Exam: PE: Constitutional: Well developed, well nourished, no acute distress, non-toxic appearance. [] HENT: Normocephalic, atraumatic, bilateral external ears normal, oropharynx moist, no oral exudates, nose normal. [] Eyes: PERRLA, EOMI, conjunctiva normal, no discharge. [] Neck: Normal range of motion, no tenderness, supple, no stridor. [] Cardiovascular:Heart rate regular rhythm, no murmur [] Lungs & Thorax: Bilateral breath sounds clear to auscultation [] Abdomen: Bowel sounds normal, soft, no tenderness, no masses, no pulsatile masses. [] Skin: Warm, dry, no erythema, no rash. Left lateral hand blistered rash with 1+ swelling [] Back: No tenderness, no CVA tenderness. [] Extremities: No tenderness, no cyanosis, no clubbing, ROM intact, no edema. [] Neurologic: Alert and oriented X 3, normal motor function, normal sensory function, no focal deficits noted. [] Psychologic: Affect normal, judgement normal, mood normal. [] (MARLEN MAXWELL [employer]PERINTENDENT [employer]SE) Current Patient Data: Vital Signs: Vital Signs Date Time Temp Pulse Resp B/P (MAP) Pulse Ox O2 Delivery O2 Flow Rate FiO2 01/30/21 20:37 98.5 54 20 134/73 (93) 100 Room Air 98.5 (MARLEN MAXWELL APRN) EKG: EKG: [] (MARLEN MAXWELL APRN) Radiology/Procedures: Radiology/Procedures: [] (MARLEN MAXWELL APRN) Course & Med Decision Making: Course & Med Decision Making Pertinent Labs and Imaging studies reviewed. (See chart for details) See HPI. Radial pulses strong and present. Cap refill less than 2 seconds. Skin pink warm and dry. Small blisters area that is starting to move down the lateral hand. This is likely shingles. [] (MARLEN MAXWELL APRN) Course & Med Decision Making Patient seen and evaluated by SOPHIA independently. I was available for consultation. (BALDO KNOWLES DO) Dragon Disclaimer: Dragon Disclaimer: This electronic medical record was generated, in whole or in part, using a voice recognition dictation system. (MARLEN MAXWELL APRN) Departure Departure Impression: Primary Impression: Shingles Qualified Codes: B02.9 - Zoster without complications Disposition: 01 DC HOME SELF CARE/HOMELESS Condition: STABLE Referrals: NO PCP (PCP) Patient Instructions: Shingles Additional Instructions: Remember this is very contagious. Keep covered. Take medication as prescribed and with food. Pain medication will make you sleepy. Follow-up with your primary care provider. Scripts Hydrocodone Bit/Acetaminophen (HYDROCODONE-APAP 5-325 ) 1 Tab Tablet 1 TAB PO PRN Q6HRS PRN for PAIN, #15 TAB 0 Refills Prov: MARLEN MAXWELL APRN 01/30/21 Valacyclovir Hcl (VALACYCLOVIR) 1,000 Mg Tablet 1 TAB PO TID, #21 TAB Prov: MARLEN MAXWELL APRN 01/30/21 MARLEN MAXWELL APRN Jan 30, 2021 21:00 BALDO KNOWLES DO Jan 30, 2021 22:39
== END 2021-01-30 21:23 | disposition home or self-care (01) ==
LOC: ER 19:11
DX: B02.9 Zoster without complications (principal); M79.642 Pain in left hand; M79.632 Pain in left forearm
CPT/HCPCS: 99283

== ENCOUNTER 2021-04-26 23:59 | Emergency (ER) | payer OTHER ==
[~2021-04-26] VITALS: Ht 157.5 cm; Wt 62.7 kg
[~2021-04-26 23:59] MED LIST changes: +HYDR-2761 PO; +VALA10008 PO
--- NOTE | 2021-04-27 01:28 | RAD ---
EXAM: AP View of the chest DATE: 04/27/2021 1:01 AM INDICATION: Reason: cough / Spl. Instructions: / History: COMPARISON: No Prior FINDINGS: The heart is not enlarged. Mediastinal and hilar contours are normal. No focal parenchymal airspace opacity. No pleural effusion or pneumothorax. IMPRESSION: 1. No radiographic evidence for acute cardiopulmonary process. Electronically signed by: Ajit Gomez MD (04/27/2021 1:25 AM) [facility]
[2021-04-27] MEDS ORDERED: DEXAMETHASONE 4 MG TABLET PO ONE (01:45)
[2021-04-27 02:16] VITALS: BP 120/73
[2021-04-27 02:58] LABS: INFLUENZA A PATIENT NEGATIVE (NEGATIVE); INFLUENZA B PATIENT NEGATIVE (NEGATIVE)
[2021-04-27] MEDS ORDERED: PRED50TA PO (03:29)
[2021-04-27] MEDS ORDERED: BENZ100C PO (03:29)
--- NOTE | 2021-04-27 03:30 | ED.ADGEN ---
Past Medical History Past Medical History: No Pertinent History Past Surgical History: No Surgical History Smoking Status: Never Smoker Alcohol Use: None Drug Use: None General Adult EDM: Chief Complaint: MULTIPLE COMPLAINTS HPI: HPI: Patient is a 30-year-old female who presents to the emergency room complaining of URI symptoms. Patient has been having nasal congestion and cough for the last several days. She tried an inhaler of her friends which did not seem to help the symptoms go away. She has not been vaccinated for COVID-19. She denies any sore throat, body aches, chills, fevers, sweats. She states that her work told her she should come here to be evaluated. She denies any shortness of breath or chest pain. She has not tried to take anything for symptoms. Review of Systems: Review of Systems: Complete ROS is negative unless otherwise documented in HPI Current Medications: Current Medications Medications (Trade) Dose Ordered Sig/Doc Start Time Stop Time Status Last Admin Dose Admin Dexamethasone (Decadron) 10 mg 1X ONCE 04/27/21 01:45 04/27/21 01:46 DC 04/27/21 02:14 10 MG Allergies: Allergies: Allergies Coded Allergies Type Severity Reaction Last Updated Verified No Known Drug Allergies 12/26/13 No Physical Exam: PE: General: Awake, alert, NAD. Well Nourished, well hydrated. Cooperative HEENT: Atraumatic, EOMI, PERRL, airway patent, moist oral mucosa, swollen nasal turbinates with nasal drainage Neck: Supple, trachea midline Respiratory: CTA bilaterally, normal effort, no wheezing/crackles, upper airway noise CV: RRR, no murmur, cap refill <2 GI: Soft, nondistended, nontender, no masses MSK: No obvious deformities Skin: Warm, dry, intact Neuro: A&O x3, speech NL, sensory and motor grossly intact, no focal deficits Psych: Normal affect, normal mood, not suicidal or homicidal Current Patient Data: Labs: Laboratory Tests Test 04/27/21 00:14 04/27/21 02:16 POC Urine HCG, Qualitative Hcg negative (Negative) Influenza Type A Antigen Negative (NEGATIVE) Influenza Type B Antigen Negative (NEGATIVE) SARS-CoV-2 Antigen (Rapid) Negative (NEGATIVE) Vital Signs: Vital Signs Date Time Temp Pulse Resp B/P (MAP) Pulse Ox O2 Delivery O2 Flow Rate FiO2 04/27/21 00:16 98.4 75 18 126/64 (84) 100 Room Air 98.4 EKG: EKG: [] Heart Score: C/O Chest Pain: N/A Risk Factors: Risk Factors: DM, Current or recent (<one month) smoker, HTN, HLP, family history of CAD, obesity. Risk Scores: Score 0 - 3: 2.5% MACE over next 6 weeks - Discharge Home Score 4 - 6: 20.3% MACE over next 6 weeks - Admit for Clinical Observation Score 7 - 10: 72.7% MACE over next 6 weeks - Early Invasive Strategies Radiology/Procedures: Radiology/Procedures: [] Course & Med Decision Making: Course & Med Decision Making Pertinent Labs and Imaging studies reviewed. (See chart for details) Patient is a 30-year-old previously healthy female presents to the emergency room with URI symptoms. Patient states there is no chance she could be . Chest x-ray was done and does not show signs of pneumonia. Covid and influenza swabs were done and are negative. This is likely viral in nature. We will treat her symptomatically. Patient's test results and vitals while in the ED were fully reviewed and discussed with the patient. Patient is stable and at this time does not need admission to the hospital. We have discussed strict return precautions and the importance of following up with their Primary Care Physician. Patient stated understanding and was given an opportunity to ask any questions. Patient is in agreement with plan. Dragon Disclaimer: Draghudson Disclaimer: This electronic medical record was generated, in whole or in part, using a voice recognition dictation system. Departure Departure Impression: Primary Impression: Upper respiratory infection Additional Impression: Cough Disposition: HOME / SELF CARE / HOMELESS Condition: STABLE Referrals: NO PCP (PCP) Patient Instructions: Upper Respiratory Infection, Adult Scripts Prednisone (PREDNISONE) 50 Mg Tablet 1 TAB PO DAILY, #5 TAB Prov: DEWEY REDD MD 04/27/21 Benzonatate (TESSALON PERLE) 100 Mg Capsule 1 CAP PO TID for cough, #21 CAP Prov: DEWEY REDD MD 04/27/21 Problem Qualifiers DEWEY REDD MD April 27, 2021 03:30
== END 2021-04-27 03:55 | disposition home or self-care (01) ==
LOC: ER 23:59
DX: J06.9 Acute upper respiratory infection, unspecified (principal); Z20.822 Contact with and (suspected) exposure to COVID-19
CPT/HCPCS: 71045; 81025; 87426; 87804; 99285; U0003; U0005

== ENCOUNTER 2021-09-12 11:06 | Emergency (ER) | payer OTHER ==
[~2021-09-12] VITALS: Ht 157.5 cm; Wt 62.3 kg
[~2021-09-12 11:06] MED LIST changes: +BENZ100C PO; +PRED50TA PO
[2021-09-12 11:25] VITALS: BP 111/66
[2021-09-12] MEDS ORDERED: IBUPROFEN 200 MG TABLET. PO ONE (12:30)
[2021-09-12] MEDS ORDERED: DEXAMETHASONE 4 MG TABLET PO ONE (12:30)
[2021-09-12] MEDS ORDERED: AMOX500C PO (12:32)
--- NOTE | 2021-09-12 12:32 | PHYS DOC ---
Past Medical History Past Medical History: No Pertinent History (MARLEN MAXWELL AMERICAN STUDIES PROFESSOR) Past Surgical History: No Surgical History (MARLEN MAXWELL APRN) Smoking Status: Never Smoker Alcohol Use: None Drug Use: None (MARLEN MAXWELL APRN) General Adult EDM: Chief Complaint: SORE THROAT HPI: HPI: Patient is a 30 year old female who presents with sore throat since this morning. She states she is going to swallow. Denies fever, nausea, vomiting, abdominal pain, dizziness, headache, vision change, focal weakness, numbness or tingling, cough, chest pain, shortness of breath. Patient is still following her saliva. Rates her pain 8 out of 10. She is also in a Covid test.. (MARLEN MAXWELL AMERICAN STUDIES PROFESSOR) Review of Systems: Review of Systems: Constitutional: Denies fever or chills. [] Eyes: Denies change in visual acuity. [] HENT: Denies nasal congestion or +sore throat. [] Respiratory: Denies cough or shortness of breath. [] Cardiovascular: Denies chest pain or edema. [] GI: Denies abdominal pain, nausea, vomiting, bloody stools or diarrhea. [] : Denies dysuria. [] Musculoskeletal: Denies back pain or joint pain. [] Integument: Denies rash. [] Neurologic: Denies headache, focal weakness or sensory changes. [] Endocrine: Denies polyuria or polydipsia. [] Lymphatic: Denies swollen glands. [] Psychiatric: Denies depression or anxiety. [] (MARLEN MAXWELL APRN) Heart Score: C/O Chest Pain: No (MARLEN MAXWELL APRN) Current Medications: Current Medications Medications (Trade) Dose Ordered Sig/Doc Start Time Stop Time Status Last Admin Dose Admin Dexamethasone (Decadron) 10 mg 1X ONCE 09/12/21 12:30 09/12/21 12:31 09/12/21 11:59 10 MG Ibuprofen (Motrin) 600 mg 1X ONCE 09/12/21 12:30 09/12/21 12:31 09/12/21 11:59 600 MG (MARLEN MAXWELL AMERICAN STUDIES PROFESSOR) Allergies: Allergies: Allergies Coded Allergies Type Severity Reaction Last Updated Verified No Known Drug Allergies 12/26/13 No (MARLEN MAXWELL APRN) Physical Exam: PE: Constitutional: Well developed, well nourished, no acute distress, non-toxic appearance. [] HENT: Normocephalic, atraumatic, bilateral external ears normal, oropharynx moist, no oral exudates, nose normal. Bilateral 2+ swollen tonsils with white patches. Uvula midline. No trismus. [] Eyes: PERRLA, EOMI, conjunctiva normal, no discharge. [] Neck: Normal range of motion, no tenderness, supple, no stridor. [] Cardiovascular:Heart rate regular rhythm, no murmur [] Lungs & Thorax: Bilateral breath sounds clear to auscultation [] Abdomen: Bowel sounds normal, soft, no tenderness, no masses, no pulsatile masses. [] Skin: Warm, dry, no erythema, no rash. [] Back: No tenderness, no CVA tenderness. [] Extremities: No tenderness, no cyanosis, no clubbing, ROM intact, no edema. [] Neurologic: Alert and oriented X 3, normal motor function, normal sensory function, no focal deficits noted. [] Psychologic: Affect normal, judgement normal, mood normal. [] (MARLEN MAXWELL AMERICAN STUDIES PROFESSOR) Current Patient Data: Vital Signs: Vital Signs Date Time Temp Pulse Resp B/P (MAP) Pulse Ox O2 Delivery O2 Flow Rate FiO2 09/12/21 11:25 99.2 65 111/66 (81) 100 99.2 (MARLEN MAXWELL APRN) EKG: EKG: [] (MARLEN MAXWELL APRN) Radiology/Procedures: Radiology/Procedures: [] (MARLEN MAXWELL APRN) Course & Med Decision Making: Course & Med Decision Making Pertinent Labs and Imaging studies reviewed. (See chart for details) See HPI. Alert and oriented x4. Ambulatory with a steady gait. No trismus. Uvula midline. Bilateral tonsils 1-2+ with white patches. Afebrile. Vital signs within normal limits. Speaks in full clear sentences. She is given dose of dexamethasone and ibuprofen in the ED. Rapid strep is negative. Covid PCR was sent. [] (MARLEN MAXWELL APRN) Dragon Disclaimer: Dragon Disclaimer: This electronic medical record was generated, in whole or in part, using a voice recognition dictation system. (MARLEN MAXWELL APRN) Departure Departure Impression: Primary Impression: Sore throat Disposition: HOME / SELF CARE / HOMELESS Condition: STABLE Referrals: NO PCP (PCP) Patient Instructions: Sore Throat Additional Instructions: Drink plenty of fluids. Take ibuprofen for your pain. Take medication as prescribed and with food. If you are unable to swallow your saliva or any fluids you begin to vomit return to the emergency room. Scripts Amoxicillin (AMOXICILLIN) 500 Mg Capsule 1 CAP PO BID, #20 CAP Prov: MARLEN MAXWELL APRN 09/12/21 Attending Signature Attending Signature I have reviewed the PA/MACHINE III COREMAKER's note and plan of care. I was available for consultation as needed during the patient's visit in the emergency department. I agree with the clinical impression, plan, and disposition. (MARYBEL PEPPER DO) MARLEN MAXWELL APRN Sep 12, 2021 12:32 MARYBEL PEPPER DO Sep 13, 2021 06:47
--- NOTE | 2021-09-13 13:16 | NUR ---
IP: Attempted to contact pt concerning covid results. No answer, left a voicemail to return the call.
--- NOTE | 2021-09-15 10:15 | NUR ---
IP: Informed pt of negative covid test. Pt verbalized understanding.
== END 2021-09-12 12:35 | disposition home or self-care (01) ==
LOC: ER 11:06
DX: J02.9 Acute pharyngitis, unspecified (principal); Z20.822 Contact with and (suspected) exposure to COVID-19
CPT/HCPCS: 87070; 87880; 99283; U0003; U0005

== ENCOUNTER 2021-09-25 11:05 | Emergency (ER) | payer OTHER ==
[~2021-09-25] VITALS: Ht 160 cm; Wt 92.0 kg
[~2021-09-25 11:05] MED LIST changes: +AMOX500C PO
[2021-09-25 11:08] VITALS: BP 120/68
[2021-09-25 11:20] LABS: CLARITY,URINE TURBID; COLOR,URINE RED
[2021-09-25 11:23] LABS: RBC,URINE TNTC /HPF (0-2)
[2021-09-25 11:24] LABS: U PREG PATIENT NEGATIVE (NEG)
[2021-09-25 11:26] LABS: BACTERIA,URINE MANY /HPF (0-FEW)
[2021-09-25 12:02] LABS: BASO % 1 % (0-3); EOS % 1 % (0-3); HEMATOCRIT 32.3 % (36.0-47.0); HEMOGLOBIN 10.6 g/dL (12.0-15.5); LYMPH # 1.8 x10^3/uL (1.0-4.8); LYMPH % 46 % (24-48); MEAN CORPUSCULAR HEMOGLOBIN 29 pg (25-35); MEAN CORPUSCULAR HGB CONC 33 g/dL (31-37); MEAN CORPUSCULAR VOLUME 87 fL (79-100); MONO # 0.3 x10^3/uL (0.0-1.1); MONO % 9 % (0-9); NEUT # 1.7 x10^3/uL (1.8-7.7); NEUT % 44 % (31-73); PLATELET COUNT 236 x10^3/uL (140-400); RED CELL DISTRIBUTION WIDTH 13.5 % (11.5-14.5); WHITE BLOOD COUNT 3.8 x10^3/uL (4.0-11.0)
--- NOTE | 2021-09-25 13:07 | PHYS DOC ---
Past Medical History Past Medical History: No Pertinent History (STEPHANIE NGUYỄN VETERINARY MEDICINE SCIENTIST) Past Surgical History: No Surgical History (STEPHANIE NGUYỄN APRN) Smoking Status: Never Smoker Alcohol Use: None Drug Use: None (ANIYASTEPHANIE GARY APRN) General Adult EDM: Chief Complaint: VAGINAL BLEEDING HPI: HPI: Patient is a 30 year old female who presents the ED today with vaginal bleeding that began 4 days ago. Patient is also complaining of abdominal cramping and bleeding more than normal. She states she is passing clots which is not normal for her. She denies being . Last menstrual cycle was the end of July 2021. (CHRISTIANaDrienSTEPHANIE Nina VETERINARY MEDICINE SCIENTIST) Review of Systems: Review of Systems: Constitutional: Denies fever or chills. [] GI: Reports vaginal bleeding. Reports abdominal cramping. Denies nausea, vomiting, bloody stools or diarrhea. [] : Denies dysuria. [] Musculoskeletal: Denies back pain or joint pain. [] Integument: Denies rash. [] Neurologic: Denies headache, focal weakness or sensory changes. [] Psychiatric: Denies depression or anxiety. [] (STEPHANIE NGUYỄN VETERINARY MEDICINE SCIENTIST) Heart Score: C/O Chest Pain: N/A Risk Factors: Risk Factors: DM, Current or recent (<one month) smoker, HTN, HLP, family history of CAD, obesity. Risk Scores: Score 0 - 3: 2.5% MACE over next 6 weeks - Discharge Home Score 4 - 6: 20.3% MACE over next 6 weeks - Admit for Clinical Observation Score 7 - 10: 72.7% MACE over next 6 weeks - Early Invasive Strategies (STEPHANIE NGUYỄN VETERINARY MEDICINE SCIENTIST) Allergies: Allergies: Allergies Coded Allergies Type Severity Reaction Last Updated Verified No Known Drug Allergies 12/26/13 No (STEPHANIE NGUYỄN APRN) Physical Exam: PE: Constitutional: Well developed, well nourished, no acute distress, non-toxic appearance. [] Abdomen: Bowel sounds normal, soft, no tenderness, no masses, no pulsatile masses. [] Pelvic exam-external vaginal area is normal. Cervix is visualized, no CMT, no adnexal tenderness, trace amount of bright red blood in the vaginal vault Skin: Warm, dry, no erythema, no rash. [] Back: No tenderness, no CVA tenderness. [] Extremities: No tenderness, no cyanosis, no clubbing, ROM intact, no edema. [] Neurologic: Alert and oriented X 3, normal motor function, normal sensory functi on, no focal deficits noted. [] Psychologic: Affect normal, judgement normal, mood normal. [] (STEPAHNIE NGUYỄN APRN) Current Patient Data: Labs: Laboratory Tests Test 09/25/21 11:11 09/25/21 11:53 Urine Collection Type Unknown Urine Color Red Urine Clarity Turbid Urine pH 5.0 (<5.0-8.0) Urine Specific Tyro >=1.030 (1.000-1.030) Urine Protein mg/dL (NEG-TRACE) Urine Glucose (UA) mg/dL (NEG) Urine Ketones (Stick) mg/dL (NEG) Urine Blood (NEG) Urine Nitrite (NEG) Urine Bilirubin (NEG) Urine Urobilinogen Dipstick mg/dL (0.2 mg/dL) Urine Leukocyte Esterase (NEG) Urine RBC Tntc /HPF (0-2) Urine WBC 5-10 /HPF (0-4) Urine Squamous Epithelial Cells Mod /LPF Urine Bacteria Many /HPF (0-FEW) Urine Mucus Mod /LPF Urine Test Negative (NEG) White Blood Count 3.8 x10^3/uL (4.0-11.0) L Red Blood Count 3.70 x10^6/uL (3.50-5.40) Hemoglobin 10.6 g/dL (12.0-15.5) L Hematocrit 32.3 % (36.0-47.0) L Mean Corpuscular Volume 87 fL (79-100) Mean Corpuscular Hemoglobin 29 pg (25-35) Mean Corpuscular Hemoglobin Concent 33 g/dL (31-37) Red Cell Distribution Width 13.5 % (11.5-14.5) Platelet Count 236 x10^3/uL (140-400) Neutrophils (%) (Auto) 44 % (31-73) Lymphocytes (%) (Auto) 46 % (24-48) Monocytes (%) (Auto) 9 % (0-9) Eosinophils (%) (Auto) 1 % (0-3) Basophils (%) (Auto) 1 % (0-3) Neutrophils # (Auto) 1.7 x10^3/uL (1.8-7.7) L Lymphocytes # (Auto) 1.8 x10^3/uL (1.0-4.8) Monocytes # (Auto) 0.3 x10^3/uL (0.0-1.1) Eosinophils # (Auto) 0.0 x10^3/uL (0.0-0.7) Basophils # (Auto) 0.0 x10^3/uL (0.0-0.2) Laboratory Tests 09/25/21 11:53 Vital Signs: Vital Signs Date Time Temp Pulse Resp B/P (MAP) Pulse Ox O2 Delivery O2 Flow Rate FiO2 09/25/21 11:08 98.6 67 16 120/68 (85) 98 Room Air 98.6 (STEPHANIE NGUYỄN APRN) EKG: EKG: [] (STEPHANIE NGUYỄN APRN) Radiology/Procedures: Radiology/Procedures: [] (STEPHANIE NGUYỄN APRN) Course & Med Decision Making: Course & Med Decision Making Pertinent Labs and Imaging studies reviewed. (See chart for details) This a 30-year-old female patient presenting to the ED today with vaginal bleeding for 4 days. Negative urine hCG. Hemoglobin 10.6, hematocrit 32.0 she has been around these numbers Reassured patient, discharge home. Follow-up with RECREATIONAL PROGRAMS DIRECTOR (STEPHANIE NGUYỄN APRN) Course & Med Decision Making I was the Attending physician on the above date of service of this patient. This patient was evaluated, examined, treated, and dispositioned from the emergency department by the mid-level practitioner. Although I was working at the time , no assistance was requested. Electronically signed, Nany Hobson DO (NANY HOBSON DO) Cordelia Disclaimer: Cordelia Disclaimer: This electronic medical record was generated, in whole or in part, using a voice recognition dictation system. (STEPHANIE NGUYỄN VETERINARY MEDICINE SCIENTIST) Departure Departure Impression: Primary Impression: Dysfunctional uterine bleeding Disposition: HOME / SELF CARE / HOMELESS Condition: STABLE Referrals: NO PCP (PCP) LAURA WALLACE Jr, MD follow up as soon as you can Patient Instructions: Uterine Bleeding, Dysfunctional, [id number] Additional Instructions: You were evaluated in the emergency room for vaginal bleeding, your test is negative. We highly recommend you take ibuprofen or Tylenol for pain. Please contact your RECREATIONAL PROGRAMS DIRECTOR and follow-up. Come back to the ED at any point you start soaking more than 1 maxi feminine pad per hour STEPHANIE NGUYỄN APRN Sep 25, 2021 13:07 NANY HOBSON DO Sep 26, 2021 16:05
[2021-09-25] MEDS ORDERED: IBUPROFEN 200 MG TABLET. PO ONE (13:45)
== END 2021-09-25 13:30 | disposition home or self-care (01) ==
LOC: ER 11:05
DX: N93.8 Other specified abnormal uterine and vaginal bleeding (principal)
CPT/HCPCS: 36415; 81001; 81025; 85025; 87086; 99284

== ENCOUNTER 2022-01-03 12:58 | Emergency (ER) | payer OTHER ==
[~2022-01-03] VITALS: Ht 157.5 cm; Wt 65.4 kg
[2022-01-03 12:59] VITALS: BP 108/72
[2022-01-03] MEDS ORDERED: IBUPROFEN 200 MG TABLET. PO ONE (14:00)
[2022-01-03] MEDS ORDERED: PENI500T PO (14:23)
--- NOTE | 2022-01-03 14:24 | PHYS DOC ---
Past Medical History Past Medical History: No Pertinent History Past Surgical History: No Surgical History Smoking Status: Never Smoker Alcohol Use: None Drug Use: None General Adult EDM: Chief Complaint: SORE THROAT HPI: HPI: Patient is a 31 year old female who presents with sore throat that started last night. Patient denies fever, cough. Denies exposure to illness. Denies nausea/vomiting/diarrhea. Patient denies medical history. Review of Systems: Review of Systems: ROS At least 10 ROS systems have been reviewed and are negative except as documented in the HPI. General: Negative except as outlined in HPI above. Skin: Negative except as outlined in HPI above. HEENT: Negative except as outlined in HPI above. Neck: Negative except as outlined in HPI above. Respiratory: Negative except as outlined in HPI above.. Cardiovascular: Negative except as outlined in HPI above. Abdomen: Negative except as outlined in HPI above. : Negative except as outlined in HPI above. Back/MSK: Negative except as outlined in HPI above. Neuro: Negative except as outlined in HPI above. Psych: Negative except as outlined in HPI above. Heart Score: C/O Chest Pain: No Risk Factors: Risk Factors: DM, Current or recent (<one month) smoker, HTN, HLP, family history of CAD, obesity. Risk Scores: Score 0 - 3: 2.5% MACE over next 6 weeks - Discharge Home Score 4 - 6: 20.3% MACE over next 6 weeks - Admit for Clinical Observation Score 7 - 10: 72.7% MACE over next 6 weeks - Early Invasive Strategies Current Medications: Current Medications Medications (Trade) Dose Ordered Sig/Doc Start Time Stop Time Status Last Admin Dose Admin Ibuprofen (Motrin) 600 mg 1X ONCE 01/03/22 14:00 01/03/22 14:01 DC Allergies: Allergies: Allergies Coded Allergies Type Severity Reaction Last Updated Verified No Known Drug Allergies 01/03/22 No Physical Exam: PE: Constitutional: Well developed, well nourished, no acute distress, non-toxic appearance. [] HENT: , bilateral external ears normal, oropharynx moist and red, tonsils are enlarged, no oral exudates, nose normal. [] Eyes: PERRLA, EOMI, conjunctiva normal, no discharge. [] Neck: Normal range of motion, no tenderness, supple, no stridor. [] Cardiovascular:Heart rate regular rhythm, no murmur [] Lungs & Thorax: Bilateral breath sounds clear to auscultation [] Abdomen: Bowel sounds normal, soft, no tenderness, no masses, no pulsatile masses. [] Skin: Warm, dry, no erythema, no rash. [] Current Patient Data: Vital Signs: Vital Signs Date Time Temp Pulse Resp B/P (MAP) Pulse Ox O2 Delivery O2 Flow Rate FiO2 01/03/22 12:59 98.6 83 16 108/72 (84) 99 Room Air 98.6 EKG: EKG: [] Radiology/Procedures: Radiology/Procedures: [] Course & Med Decision Making: Course & Med Decision Making Pertinent Labs and Imaging studies reviewed. (See chart for details) [] 31-year-old female who presents with sore throat. Work-up in ER consisted of rapid strep, Motrin for pain. Rapid strep was positive. Patient's home with antibiotic. Advised patient to take ibuprofen at home for discomfort or fevers. Return to emergency with worsening symptoms or concerns. Dragon Disclaimer: Draghudson Disclaimer: This electronic medical record was generated, in whole or in part, using a voice recognition dictation system. Departure Departure Impression: Primary Impression: Strep pharyngitis Disposition: HOME / SELF CARE / HOMELESS Condition: STABLE Referrals: NO PCP (PCP) Patient Instructions: Strep Throat Additional Instructions: You were seen in the emergency room for sore throat. Rapid strep was positive for strep throat. And sent home with antibiotic. Make sure you take as directed and in full. You can take ibuprofen and Tylenol at home for discomfort or fever. Please return to the emergency room if you have worsening symptoms or concerns such as unable to swallow your own secretions, shortness of breath, chest pain or any worsening symptoms. EMERGENCY DEPARTMENT GENERAL DISCHARGE INSTRUCTIONS Thank you for coming to [facility] Emergency Department (ED) today and trusting us with you care. We trust that you had a positive experience in our Emergency Department. If you wish to speak to the department management, you may call the Director at [phone]. YOUR FOLLOW UP INSTRUCTIONS ARE FOLLOWS: 1. Do you have a private Doctor? If you do not have a private doctor, please ask for a resource list of physicians or clinics that may be able to assist you with follow up care. 2. The Emergency Physicain has interpreted your x-rays. The X-Ray specialist will also review them. If there is a change in the findings, you will be notified in 48 hours when at all possible. 3. A lab test or culture has been done, your results will be reviewed and you w ill be notified if you need a change in treatment. ADDITIONAL INSTRUCTIONS AND INFORMATION: 1. Your care today has been supervised by a physician who is specially trained in emergency care. Many problems require more than one evaluation for a complete diagnosis and treatment. We recommend that you schedule your follow up appointment as recommended to ensure complete treatment of you illness or injury. If you are unable to obtain follow up care and continue to have a problem, or if your condition worsens, we recommend that you return to the ED. 2. We are not able to safely determine your condition over the phone nor are we able to give sound medical advice over the phone. For these safety reasons, if you call for medical advice we will ask you to come to the ED for further evaluation. 3. If you have any questions regarding these discharge instructions please call the ED at [phone]. SAFETY INFORMATION: In the interest of safety, wellness, and injury prevention; we encourage you to wear your sealbelt, if you smoke; quite smoking, and we encourage family to use a protective helmet for bicycling and other sporting events that present an increased risk for head injury. IF YOUR SYMPTOMS WORSEN OR NEW SYMPTOMS DEVELOP, OR YOU HAVE CONCERNS ABOUT YOUR CONDITION; OR IF YOUR CONDITION WORSENS WHILE YOU ARE WAITING FOR YOUR FOLLOW UP APPOINTMENT; EITHER CONTACT YOUR PRIMARY CARE DOCTOR, THE PHYSICIAN WHOSE NAME AND NUMBER YOU WERE GIVEN, OR RETURN TO THE ED IMMEDIATELY. Scripts Penicillin V Potassium (PENICILLIN V POTASSIUM) 500 Mg Tablet 1 TAB PO BID for 10 Days, #20 TAB 0 Refills Prov: DEONNA CISNEROS APRN 01/03/22 DEONNA CISNEROS APRN Jan 03, 2022 14:24
== END 2022-01-03 14:34 | disposition home or self-care (01) ==
LOC: ER 12:58
DX: J02.0 Streptococcal pharyngitis (principal); B95.0 Streptococcus, group A, as the cause of diseases classified elsewhere
CPT/HCPCS: 87880; 99283

== ENCOUNTER 2022-02-27 09:04 | Emergency (ER) | payer OTHER ==
[~2022-02-27] VITALS: Ht 157.5 cm; Wt 62.7 kg
[~2022-02-27 09:04] MED LIST changes: +PENI500T PO
--- NOTE | 2022-02-27 09:17 | PHYS DOC ---
Past Medical History Past Medical History: No Pertinent History Past Surgical History: No Surgical History Smoking Status: Never Smoker Alcohol Use: None Drug Use: None General Adult EDM: Chief Complaint: ABDOMINAL PAIN HPI: HPI: Patient is a 31 year old female who presents with suprapubic abdominal pain. S he denies nausea, vomiting, diarrhea, constipation. She does report some urinary urgency and frequency. Denies gross hematuria. Denies vaginal discharge or bleeding. LMP within the last week. She denies right or left lower quadrant pain. Denies back or flank pain. She denies anorexia. She denies fevers or chills. She denies cough, dyspnea, chest pain, headache, sore throat. She denies rash. No other complaints. Review of Systems: Review of Systems: As per HPI Heart Score: C/O Chest Pain: No Risk Factors: Risk Factors: DM, Current or recent (<one month) smoker, HTN, HLP, family history of CAD, obesity. Risk Scores: Score 0 - 3: 2.5% MACE over next 6 weeks - Discharge Home Score 4 - 6: 20.3% MACE over next 6 weeks - Admit for Clinical Observation Score 7 - 10: 72.7% MACE over next 6 weeks - Early Invasive Strategies Allergies: Allergies: Allergies Coded Allergies Type Severity Reaction Last Updated Verified No Known Drug Allergies 02/27/22 No Physical Exam: PE: Constitutional: Well developed, well nourished, no acute distress, non-toxic appearance. [] HENT: Normocephalic, atraumatic Eyes: Sclera anicteric Neck: Trachea midline Cardiovascular:Heart rate regular rhythm, 2 radial and +2 posterior tibial pulses bilaterally Lungs & Thorax: Bilateral breath sounds clear to auscultation [] Abdomen: Abdomen is soft, nondistended, nontender to palpation, no CVA tenderness, no palpable masses organomegaly. No tenderness elicited at all. Skin: Warm, dry, no erythema, no rash. [] Back: No tenderness, no CVA tenderness. [] Extremities: No tenderness, no cyanosis, no clubbing, ROM intact, no edema. [] Neurologic: Alert and oriented X 3, normal motor function, normal sensory function, no focal deficits noted. [] Psychologic: Affect normal, judgement normal, mood normal. [] EKG: EKG: [] Radiology/Procedures: Radiology/Procedures: [] Course & Med Decision Making: Course & Med Decision Making Pertinent Labs and Imaging studies reviewed. (See chart for details) I discussed the findings, differential diagnosis and plan of care with her. She is very well-appearing. Findings are most consistent with UTI. She has a benign abdominal exam, she has no subjective significant pain at this time, has declined pain medication. No associated GI symptoms other than suprapubic abdominal pain. She will be empirically treated for cystitis. She understands that urine culture is pending, she should be notified of any change antibiotics based on the culture results. Return precautions are given. She verbalizes understanding. Cordelia Disclaimer: Cordelia Disclaimer: This electronic medical record was generated, in whole or in part, using a voice recognition dictation system. Departure Departure Impression: Primary Impression: Urinary tract infection Disposition: HOME / SELF CARE / HOMELESS Condition: STABLE Referrals: NO PCP (PCP) Patient Instructions: Urinary Tract Infection Additional Instructions: Take the full course of antibiotics as directed until gone. Return to the ER immediately for fever 100.4 or higher, more severe pain, uncontrolled vomiting, severe back or flank pain, dehydration, or for any other concerns. If there is any need to change antibiotics based on your urine culture result, you should be notified, that takes about 2 days. Please follow-up with a primary care physician. Scripts Cephalexin (CEPHALEXIN) 500 Mg Tablet 1 TAB PO BID for 7 Days, #14 TAB Prov: TRE SOUSA DO 02/27/22 TRE SOUSA DO Feb 27, 2022 09:17
[2022-02-27 10:07] LABS: BASO % 0 % (0-3); EOS % 1 % (0-3); HEMATOCRIT 32.2 % (36.0-47.0); HEMOGLOBIN 10.3 g/dL (12.0-15.5); LYMPH # 2.2 x10^3/uL (1.0-4.8); LYMPH % 48 % (24-48); MEAN CORPUSCULAR HEMOGLOBIN 28 pg (25-35); MEAN CORPUSCULAR HGB CONC 32 g/dL (31-37); MEAN CORPUSCULAR VOLUME 87 fL (79-100); MONO # 0.4 x10^3/uL (0.0-1.1); MONO % 9 % (0-9); NEUT # 1.9 x10^3/uL (1.8-7.7); NEUT % 42 % (31-73); PLATELET COUNT 213 x10^3/uL (140-400); RED BLOOD COUNT 3.71 x10^6/uL (3.50-5.40); RED CELL DISTRIBUTION WIDTH 14.4 % (11.5-14.5); WHITE BLOOD COUNT 4.6 x10^3/uL (4.0-11.0)
[2022-02-27 10:17] LABS: BACTERIA,URINE MODERATE /HPF (0-FEW); RBC,URINE 0 /HPF (0-2)
[2022-02-27 10:22] LABS: CALCIUM 8.8 mg/dL (8.5-10.1); GFR 78.8; POTASSIUM 4.2 mmol/L (3.5-5.1)
[2022-02-27 10:29] LABS: ALBUMIN 3.3 g/dL (3.4-5.0); ALBUMIN/GLOBULIN RATIO 0.9 (1.0-1.7); TOTAL BILIRUBIN 0.3 mg/dL (0.2-1.0)
[2022-02-27] MEDS ORDERED: CEPH500T PO (11:23)
[2022-02-27 12:00] VITALS: BP 146/52
== END 2022-02-27 12:09 | disposition home or self-care (01) ==
LOC: ER 09:04
DX: N39.0 Urinary tract infection, site not specified (principal)
CPT/HCPCS: 36415; 80053; 81001; 81025; 83690; 85025; 87077; 87086; 87186; 99285-25